=== PATIENT | female | born 1970 | race Caucasian/White ===

== ENCOUNTER 2018-02-10 08:46 | Day surgery (SDC) | payer OTHER ==
[~2018-02-10] VITALS: Ht 170.2 cm; Wt 61.4 kg
[2018-02-10 09:02] VITALS: BP 118/82; PULSE 96; TEMP 98.4
[2018-02-10] MEDS ORDERED: LOMOTIL 0.025 M1 TAB PO (09:18)
[2018-02-10] MEDS ORDERED: ZOFRAN 4MG T4 MG/TAB PO (09:19)
[2018-02-10 11:10] VITALS: BP 115/70; PULSE 67; TEMP 98.4
[2018-02-10 11:25] VITALS: BP 102/67; PULSE 73
[2018-02-10 11:40] VITALS: BP 113/68; PULSE 61
[2018-02-10 11:55] VITALS: BP 111/72; PULSE 57
== END 2018-02-10 12:45 | disposition home or self-care (01) ==
LOC: SDCO 08:46
DX: K52.9 Noninfective gastroenteritis and colitis, unspecified (principal); R93.3 Abnormal findings on diagnostic imaging of other parts of digestive tract
CPT/HCPCS: J2250; J2405; J2930; J3010; J7030

== ENCOUNTER 2018-06-14 12:30 | Outpatient (RCR) | payer OTHER ==
[2018-04-19 13:13] LABS: HEMATOCRIT 35.2 % (37.0-47.0); HEMOGLOBIN 11.1 g/dl (12.5-16.0); MEAN CELL VOLUME 92 fl (80.0-100.0); MEAN CORPUSCULAR HEMOGLOBIN 29 pg (27.0-31.0); MEAN CORPUSCULAR HGB CONC 32 g/dl (33.0-37.0); MEAN PLATELET VOLUME 9.9 fl (7.4-10.4); PLATELET COUNT 279 K/mm3 (130-400); RED BLOOD COUNT 3.81 M/mm3 (4.10-5.30); REDCELL DISTRIBUTION WIDTH-CV 14.3 % (11.5-14.5)
[2018-04-19 13:19] LABS: ALBUMIN 4.1 gm/dL (3.5-5.0); BILIRUBIN,TOTAL 0.5 mg/dL (0.0-1.0); CALCIUM 8.9 mg/dL (8.4-10.2); CREATININE, serum 0.74 mg/dL (0.52-1.25); POTASSIUM 4.1 mmol/L (3.4-5.0); TOTAL PROTEIN 7.5 gm/dL (6.4-8.2)
[2018-04-19 13:29] VITALS: BP 118/67; PULSE 86; TEMP 98
[2018-04-19 14:15] VITALS: BP 118/67; PULSE 86; TEMP 98
[2018-04-19 14:45] VITALS: BP 106/63; PULSE 70; TEMP 97.9
[2018-04-19 15:15] VITALS: BP 105/59; PULSE 70; TEMP 97.9
[2018-04-19 16:15] VITALS: BP 111/57; PULSE 55
[2018-04-19 16:25] VITALS: BP 108/66; PULSE 53; TEMP 97.9
[2018-05-03 10:13] VITALS: BP 114/68; PULSE 55; TEMP 97.7
[2018-05-03 10:43] LABS: HEMOGLOBIN 10.6 g/dl (12.5-16.0); MEAN CELL VOLUME 89 fl (80.0-100.0); MEAN CORPUSCULAR HEMOGLOBIN 28 pg (27.0-31.0); MEAN CORPUSCULAR HGB CONC 32 g/dl (33.0-37.0); MEAN PLATELET VOLUME 9.6 fl (7.4-10.4); PLATELET COUNT 251 K/mm3 (130-400); RED BLOOD COUNT 3.75 M/mm3 (4.10-5.30); REDCELL DISTRIBUTION WIDTH-CV 14.7 % (11.5-14.5)
[2018-05-03 10:48] LABS: HEMATOCRIT 33.5 % (37.0-47.0)
[2018-05-03 10:53] LABS: ALBUMIN 4.1 gm/dL (3.5-5.0); BILIRUBIN,TOTAL 0.8 mg/dL (0.0-1.0); CALCIUM 9.5 mg/dL (8.4-10.2); CREATININE, serum 0.81 mg/dL (0.52-1.25); POTASSIUM 4.4 mmol/L (3.4-5.0); TOTAL PROTEIN 7.6 gm/dL (6.4-8.2)
[2018-05-03 11:33] VITALS: BP 116/74; PULSE 49
[2018-05-31 10:20] VITALS: BP 122/68; PULSE 61; TEMP 98
[2018-05-31 10:24] LABS: HEMOGLOBIN 10.5 g/dl (12.5-16.0); MEAN CELL VOLUME 83 fl (80.0-100.0); MEAN CORPUSCULAR HEMOGLOBIN 26 pg (27.0-31.0); MEAN CORPUSCULAR HGB CONC 32 g/dl (33.0-37.0); MEAN PLATELET VOLUME 10.9 fl (7.4-10.4); PLATELET COUNT 244 K/mm3 (130-400); RED BLOOD COUNT 3.99 M/mm3 (4.10-5.30); REDCELL DISTRIBUTION WIDTH-CV 15.2 % (11.5-14.5)
[2018-05-31 10:29] LABS: HEMATOCRIT 33.2 % (37.0-47.0)
[2018-05-31 10:35] LABS: BILIRUBIN,TOTAL 0.7 mg/dL (0.0-1.0); CALCIUM 8.9 mg/dL (8.4-10.2); CREATININE, serum 0.6 mg/dL (0.52-1.25); POTASSIUM 4.1 mmol/L (3.4-5.0); TOTAL PROTEIN 7.3 gm/dL (6.4-8.2)
[~2018-06-14] VITALS: Ht 170.2 cm; Wt 68.1 kg
[~2018-06-14 12:30] MED LIST: B-12 100 MCG PO; HAIRSKINNAILS PO; LOMOTIL 0.025 M1 TAB PO; PREDNISONE20 MG PO; PROBIOTIC ACID1 EAC3 PO; TURMERIC500 MG PO; VITAMIN D 400400 IU PO; ZOFRAN 4MG T4 MG/TAB PO
[2018-06-14 13:10] VITALS: BP 106/58; PULSE 58; TEMP 98.7
[2018-06-14 13:40] VITALS: BP 110/59; PULSE 61; TEMP 99.1
[2018-06-14 14:10] VITALS: BP 103/54; PULSE 83; TEMP 98.7
[2018-06-14 14:40] VITALS: BP 109/37; PULSE 78; TEMP 98.2
[2018-06-14 15:10] VITALS: BP 103/58; PULSE 56; TEMP 97.7
== END 2018-06-14 15:29 | disposition home or self-care (01) ==
LOC: EUO 12:30
PROVIDERS: Internal Medicine Gastroenterology
DX: K50.90 Crohn's disease, unspecified, without complications (principal)
CPT/HCPCS: J1200; J1745; J2930; J7050

== ENCOUNTER 2018-08-11 14:09 | Outpatient (CLI) | payer OTHER ==
[~2018-08-11] VITALS: Ht 170.2 cm; Wt 65.0 kg
[2018-08-11 14:38] LABS: HEMOGLOBIN 10.6 g/dl (12.5-16.0); MEAN CELL VOLUME 79 fl (80.0-100.0); MEAN CORPUSCULAR HEMOGLOBIN 25 pg (27.0-31.0); MEAN CORPUSCULAR HGB CONC 32 g/dl (33.0-37.0); MEAN PLATELET VOLUME 10.5 fl (7.4-10.4); PLATELET COUNT 357 K/mm3 (130-400)
[2018-08-11 14:50] LABS: BILIRUBIN,TOTAL 0.8 mg/dL (0.0-1.0); CALCIUM 9.3 mg/dL (8.4-10.2); CREATININE, serum 0.79 mg/dL (0.52-1.25); POTASSIUM 4.4 mmol/L (3.4-5.0); TOTAL PROTEIN 7.6 gm/dL (6.4-8.2)
[2018-08-11 14:53] LABS: HEMATOCRIT 33.3 % (37.0-47.0)
[2018-08-11 16:00] VITALS: BP 119/57; PULSE 64; TEMP 98.4
[2018-08-11 16:30] VITALS: BP 112/51; PULSE 60; TEMP 98.5
[2018-08-11 17:00] VITALS: BP 108/51; PULSE 55; TEMP 98.3
[2018-08-11 17:30] VITALS: BP 109/51; PULSE 61; TEMP 98.1
[2018-08-11 18:00] VITALS: BP 118/57; PULSE 81; TEMP 98.2
== END 2018-08-11 18:00 | disposition home or self-care (01) ==
LOC: EUO 14:09
PROVIDERS: Internal Medicine Gastroenterology
DX: K50.90 Crohn's disease, unspecified, without complications (principal); Z79.899 Other long term (current) drug therapy
CPT/HCPCS: J1200; J1745; J7050

== ENCOUNTER 2018-11-17 16:02 | Outpatient (CLI) | payer OTHER ==
[~2018-11-17] VITALS: Ht 170.2 cm; Wt 68.4 kg
[2018-11-17 16:42] LABS: HEMATOCRIT 40.4 % (37.0-47.0); HEMOGLOBIN 13.4 g/dl (12.5-16.0); MEAN CELL VOLUME 93 fl (80.0-100.0); MEAN CORPUSCULAR HEMOGLOBIN 31 pg (27.0-31.0); MEAN CORPUSCULAR HGB CONC 33 g/dl (33.0-37.0); MEAN PLATELET VOLUME 10.6 fl (7.4-10.4); PLATELET COUNT 260 K/mm3 (130-400); RED BLOOD COUNT 4.34 M/mm3 (4.10-5.30); REDCELL DISTRIBUTION WIDTH-CV 15.1 % (11.5-14.5)
[2018-11-17 16:53] LABS: ALBUMIN 4.1 gm/dL (3.5-5.0); BILIRUBIN,TOTAL 0.7 mg/dL (0.0-1.0); CALCIUM 9.4 mg/dL (8.4-10.2); CREATININE, serum 0.74 mg/dL (0.52-1.25); POTASSIUM 4.4 mmol/L (3.4-5.0); TOTAL PROTEIN 7.5 gm/dL (6.4-8.2)
[2018-11-17 17:55] VITALS: BP 125/77; PULSE 50
[2018-11-17 18:25] VITALS: BP 130/72; PULSE 52
[2018-11-17 18:55] VITALS: BP 118/72; PULSE 52
[2018-11-17 19:25] VITALS: BP 110/67; PULSE 48
[2018-11-17 20:02] VITALS: BP 107/73; PULSE 52; TEMP 98
== END 2018-11-17 20:04 | disposition home or self-care (01) ==
LOC: EUO 16:02
PROVIDERS: Internal Medicine Gastroenterology
DX: K50.90 Crohn's disease, unspecified, without complications (principal); Z79.899 Other long term (current) drug therapy
CPT/HCPCS: J1200; J1745; J7050

== ENCOUNTER 2019-03-13 14:48 | Outpatient (CLI) | payer OTHER ==
[~2019-03-13] VITALS: Ht 170.2 cm; Wt 68.1 kg
[2019-03-13 15:15] LABS: HEMATOCRIT 40.3 % (37.0-47.0); HEMOGLOBIN 13.9 g/dl (12.5-16.0); MEAN CELL VOLUME 94 fl (80.0-100.0); MEAN CORPUSCULAR HEMOGLOBIN 33 pg (27.0-31.0); MEAN CORPUSCULAR HGB CONC 35 g/dl (33.0-37.0); MEAN PLATELET VOLUME 10.7 fl (7.4-10.4); PLATELET COUNT 200 K/mm3 (130-400); RED BLOOD COUNT 4.27 M/mm3 (4.10-5.30); REDCELL DISTRIBUTION WIDTH-CV 12.8 % (11.5-14.5)
[2019-03-13 15:33] LABS: BILIRUBIN,TOTAL 0.5 mg/dL (0.0-1.0); CALCIUM 9.4 mg/dL (8.4-10.2); CREATININE, serum 0.72 (0.52-1.25); POTASSIUM 4.1 mmol/L (3.4-5.0); TOTAL PROTEIN 7.8 gm/dL (6.4-8.2)
[2019-03-13 16:00] VITALS: BP 119/74; PULSE 48; TEMP 97.8
[2019-03-13 16:30] VITALS: BP 110/74; PULSE 50; TEMP 97.9
[2019-03-13 17:00] VITALS: BP 103/69; PULSE 55; TEMP 98.3
[2019-03-13 17:30] VITALS: BP 106/59; PULSE 53; TEMP 98.1
[2019-03-13 18:00] VITALS: BP 102/64; PULSE 54; TEMP 98.1
== END 2019-03-13 18:10 | disposition home or self-care (01) ==
LOC: EUO 14:48
PROVIDERS: Internal Medicine Gastroenterology
DX: K50.90 Crohn's disease, unspecified, without complications (principal); Z79.899 Other long term (current) drug therapy
CPT/HCPCS: J1200; J1745; J2930; J7050

== ENCOUNTER 2019-05-08 15:04 | Outpatient (CLI) | payer OTHER ==
[~2019-05-08] VITALS: Ht 170.2 cm; Wt 68.4 kg
[2019-05-08 15:25] LABS: HEMATOCRIT 42.5 % (37.0-47.0); HEMOGLOBIN 14.3 g/dl (12.5-16.0); MEAN CELL VOLUME 95 fl (80.0-100.0); MEAN CORPUSCULAR HEMOGLOBIN 32 pg (27.0-31.0); MEAN CORPUSCULAR HGB CONC 34 g/dl (33.0-37.0); MEAN PLATELET VOLUME 10.9 fl (7.4-10.4); PLATELET COUNT 188 K/mm3 (130-400); RED BLOOD COUNT 4.47 M/mm3 (4.10-5.30); REDCELL DISTRIBUTION WIDTH-CV 13.6 % (11.5-14.5)
[2019-05-08 15:55] VITALS: BP 113/69; PULSE 50; TEMP 97.4
[2019-05-08 16:18] LABS: ALBUMIN 4.3 gm/dL (3.5-5.0); BILIRUBIN,TOTAL 0.8 mg/dL (0.0-1.0); CALCIUM 9.8 mg/dL (8.4-10.2); CREATININE, serum 0.91 (0.52-1.25); POTASSIUM 4.7 mmol/L (3.4-5.0); TOTAL PROTEIN 7.9 gm/dL (6.4-8.2)
[2019-05-08 16:32] VITALS: BP 116/73; PULSE 42; TEMP 97.4
[2019-05-08 16:55] VITALS: BP 119/62; PULSE 43; TEMP 97.4
[2019-05-08 17:25] VITALS: BP 115/64; PULSE 50; TEMP 97.4
[2019-05-08 17:55] VITALS: BP 105/62; PULSE 54; TEMP 97.4
== END 2019-05-08 17:59 | disposition home or self-care (01) ==
LOC: EUO 15:04
PROVIDERS: Internal Medicine Gastroenterology
DX: K50.90 Crohn's disease, unspecified, without complications (principal); Z79.899 Other long term (current) drug therapy
CPT/HCPCS: J1200; J2930; J7050; Q5103

== ENCOUNTER 2019-07-05 15:00 | Outpatient (CLI) | payer OTHER ==
[~2019-07-05] VITALS: Ht 170.2 cm; Wt 68.6 kg
[2019-07-05 15:22] LABS: BASO % 0.3 % (0.0-2.0); EOS # 0.1 (0.0-0.7); EOS % 2.2 % (0-4.0); GRAN % 64.5 % (42.2-75.2); HEMATOCRIT 40.8 % (37.0-47.0); HEMOGLOBIN 13.8 g/dl (12.5-16.0); LYMPH # 1.5 (1.2-3.4); LYMPH % 23.8 % (20.0-51.0); MEAN CELL VOLUME 97 fl (80.0-100.0); MEAN CORPUSCULAR HEMOGLOBIN 33 pg (27.0-31.0); MEAN CORPUSCULAR HGB CONC 34 g/dl (33.0-37.0); MEAN PLATELET VOLUME 10.9 fl (7.4-10.4); MONO # 0.6 (0.1-0.6); PLATELET COUNT 193 K/mm3 (130-400); RED BLOOD COUNT 4.19 M/mm3 (4.10-5.30); REDCELL DISTRIBUTION WIDTH-CV 13.2 % (11.5-14.5)
[2019-07-05 15:37] LABS: ALBUMIN 4.3 gm/dL (3.5-5.0); BILIRUBIN,TOTAL 1.2 mg/dL (0.0-1.0); CALCIUM 9.5 mg/dL (8.4-10.2); CREATININE, serum 0.8 (0.52-1.25); POTASSIUM 3.9 mmol/L (3.4-5.0); TOTAL PROTEIN 7.8 gm/dL (6.4-8.2)
[2019-07-05 16:40] VITALS: BP 108/68; PULSE 80; TEMP 97.9
[2019-07-05 17:10] VITALS: BP 108/55; PULSE 51; TEMP 98
[2019-07-05 17:40] VITALS: BP 112/64; PULSE 50; TEMP 97.8
[2019-07-05 18:10] VITALS: BP 110/65; PULSE 56; TEMP 98.2
[2019-07-05 18:45] VITALS: BP 120/73; PULSE 63; TEMP 98
== END 2019-07-05 18:00 | disposition home or self-care (01) ==
LOC: EUO 15:00
PROVIDERS: Internal Medicine Gastroenterology
DX: K50.90 Crohn's disease, unspecified, without complications (principal); Z79.899 Other long term (current) drug therapy
CPT/HCPCS: J1200; J1745; J2930; J7050

== ENCOUNTER 2019-08-30 14:51 | Outpatient (CLI) | payer OTHER ==
[~2019-08-30] VITALS: Ht 170.2 cm; Wt 69.0 kg
[2019-08-30 15:30] VITALS: BP 124/79; PULSE 61
[2019-08-30 15:35] LABS: HEMATOCRIT 41.1 % (37.0-47.0); HEMOGLOBIN 14.2 g/dl (12.5-16.0); MEAN CELL VOLUME 96 fl (80.0-100.0); MEAN CORPUSCULAR HEMOGLOBIN 33 pg (27.0-31.0); MEAN CORPUSCULAR HGB CONC 35 g/dl (33.0-37.0); MEAN PLATELET VOLUME 10.8 fl (7.4-10.4); PLATELET COUNT 196 K/mm3 (130-400); RED BLOOD COUNT 4.27 M/mm3 (4.10-5.30); REDCELL DISTRIBUTION WIDTH-CV 12.6 % (11.5-14.5)
[2019-08-30 15:45] LABS: ALBUMIN 4.6 gm/dL (3.5-5.0); BILIRUBIN,TOTAL 0.8 mg/dL (0.0-1.0); CALCIUM 9.3 mg/dL (8.4-10.2); CREATININE, serum 0.87 (0.52-1.25); POTASSIUM 3.8 mmol/L (3.4-5.0)
--- NOTE | 2019-08-30 16:04 | NUR ---
WE were informed by pharmacy that pt did not have any medication in pharmacy. pt notified, saline lock dc'd, and pt will plan to check on her med and then reschedule.
== END 2019-08-30 16:13 | disposition home or self-care (01) ==
LOC: EUO 14:51
PROVIDERS: Internal Medicine Gastroenterology
DX: K50.90 Crohn's disease, unspecified, without complications (principal)
CPT/HCPCS: J1745

== ENCOUNTER 2019-09-06 13:24 | Outpatient (CLI) | payer OTHER ==
[~2019-09-06] VITALS: Ht 170.2 cm; Wt 69.4 kg
[2019-09-06] VITALS (7 sets, daily range): BP systolic 104–119; BP diastolic 56–74; PULSE 45–59; TEMP 98.3–98.6
== END 2019-09-06 17:20 | disposition home or self-care (01) ==
LOC: EUO 13:24
DX: K50.90 Crohn's disease, unspecified, without complications (principal); Z79.899 Other long term (current) drug therapy
CPT/HCPCS: J1200; J1745; J2930; J7050

== ENCOUNTER 2019-11-01 14:44 | Outpatient (CLI) | payer OTHER ==
[~2019-11-01] VITALS: Ht 170.2 cm; Wt 70.0 kg
[2019-11-01 16:05] LABS: HEMATOCRIT 41.4 % (37.0-47.0); HEMOGLOBIN 13.8 g/dl (12.5-16.0); MEAN CELL VOLUME 98 fl (80.0-100.0); MEAN CORPUSCULAR HEMOGLOBIN 33 pg (27.0-31.0); MEAN CORPUSCULAR HGB CONC 33 g/dl (33.0-37.0); PLATELET COUNT 197 K/mm3 (130-400); RED BLOOD COUNT 4.23 M/mm3 (4.10-5.30); REDCELL DISTRIBUTION WIDTH-CV 12.9 % (11.5-14.5)
[2019-11-01 16:09] LABS: ALBUMIN 4.7 gm/dL (3.5-5.0); BILIRUBIN,TOTAL 1.1 mg/dL (0.0-1.0); CALCIUM 9.3 mg/dL (8.4-10.2); CREATININE, serum 0.77 (0.52-1.25); POTASSIUM 3.7 mmol/L (3.4-5.0); TOTAL PROTEIN 8.1 gm/dL (6.4-8.2)
[2019-11-01 17:08] VITALS: BP 119/65; PULSE 59; TEMP 98.2
[2019-11-01 18:00] VITALS: BP 107/57; PULSE 80; TEMP 97.9
[2019-11-01 18:30] VITALS: BP 109/63; PULSE 54; TEMP 97.6
[2019-11-01 19:00] VITALS: BP 114/64; PULSE 50; TEMP 97.9
== END 2019-11-01 20:44 | disposition home or self-care (01) ==
LOC: EUO 14:44
PROVIDERS: Internal Medicine Gastroenterology
DX: K50.90 Crohn's disease, unspecified, without complications (principal); Z79.899 Other long term (current) drug therapy
CPT/HCPCS: J1200; J1745; J2930; J7050